=== PATIENT | female | born 1970 | race Caucasian/White ===

== ENCOUNTER → 2018-04-26 | Outpatient (CLI) | payer OTHER ==
[~2018-04-26] MED LIST: AMOCLA875 PO; ATOM10 PO; CEPH500 PO; CRUTCH4 USE; FAMO20 PO; HYDACE5 PO; IBUP600 PO; IBUP800 PO; LITH300C PO; NITR100CA PO; Naprosyn500 MG PO; OXYACE5T PO; PENVK500 PO; PHENA200 PO; PROACE100 PO; SULTRIDS PO; TRAM50 PO; Ultram50 MG PO; Veetids 500500 MG PO
== END | disposition home or self-care (01) ==
LOC: LAB EV 14:19 → LAB SHORT 14:19
DX: L01.00 Impetigo, unspecified (principal)
CPT/HCPCS: 87070; 87205

== ENCOUNTER 2023-04-11 07:54 | Day surgery (SDC) | payer OTHER ==
[~2023-04-11] VITALS: Ht 175.3 cm; Wt 106.8 kg
[2023-04-11] VITALS (16 sets, daily range): BP systolic 95–167; BP diastolic 72–145
--- NOTE | 2023-04-11 09:06 | NUR ---
Ambulatory in Day Surgery History, Chart, Medications and Allergies reviewed before start of procedure. Pre-Op teaching done. Pt verbalizes understanding. Patient States Post-Procedure ride home has been arranged.
--- NOTE | 2023-04-11 09:44 | NUR ---
04/11/23 09Nicole Canas HISTORY, CHART, MEDICATIONS AND ALLERGIES REVIEWED BEFORE START OF PROCEDURE. PATIENT CONFIRMS NPO STATUS AND AGREES WITH SCHEDULED PROCEDURE. 3-LEAD EKG REVIEWED WITH PHYSICIAN PRIOR TO START OF PROCEDURE. MONITOR INTACT WITH CONTINUOUS PULSE OXIMETRY,CAPNOGRAPHY, 3-LEAD EKG, INTERMITTENT BP. SUPPLEMENTAL O2 TO BE TITRATED THROUGHOUT PROCEDURE TO MAINTAIN O2 SATURATION ABOVE 90%. PATIENT DETERMINED TO BE ASA APPROPRIATE FOR PROPOFOL SEDATION PRIOR TO START OF PROCEDURE BY .
--- NOTE | 2023-04-11 10:39 | NUR ---
Discharge instructions reviewed with patient. Patient verbalizes understanding. Copy given to patient to take home. Patient States Post-Procedure ride home has been arranged. Discharged via wheelchair to private car for ride home.
== END 2023-04-11 10:39 | disposition home or self-care (01) ==
LOC: ORSCMMR 07:54 → ORD 09:00 → ORSCMMR 10:39
PROVIDERS: Internal Medicine Gastroenterology
PROC: 0DBN8ZX Excision of Sigmoid Colon, Via Natural or Artificial Opening Endoscopic, Diagnostic (ICD-10-PCS; principal; 2023-04-11 09:00)
DX: K62.5 Hemorrhage of anus and rectum (principal); K63.5 Polyp of colon; K64.4 Residual hemorrhoidal skin tags; Z87.891 Personal history of nicotine dependence
CPT/HCPCS: 88305; J2250; J2704; J7120

== ENCOUNTER → 2024-05-28 | Outpatient (CLI) | payer OTHER ==
[2024-06-07 07:42] LABS: HPV HIGH RISK BY TMA Not Detected; HPV SOURCE Cervical
== END | disposition home or self-care (01) ==
LOC: LAB 17:13 → LAB SHORT 17:13
PROVIDERS: Registered Nurse
DX: Z01.419 Encounter for gynecological examination (general) (routine) without abnormal findings (principal)
CPT/HCPCS: 87624; G0123